=== PATIENT | female | born 1985 | race Caucasian/White ===

== ENCOUNTER 2018-05-07 12:22 | Inpatient (IN) ==
--- NOTE | 2018-05-07 12:38 | Emergency Department Note ---
Disposition Clinical Impression: Wound of right lower extremity Qualifiers: Encounter type: initial encounter Qualified Code(s): S81.801A - Unspecified open wound, right lower leg, initial encounter Disposition: Admitted As Inpatient Condition: Good Time of Disposition: 12:55 Wound/Laceration HPI - General Chief Complaint: ED Wound/Laceration Stated Complaint: "wound on R leg drainage,fever,swelling" Time Seen by Provider: 05/07/18 12:37 Source: patient Mode of arrival: ambulatory Limitations: no limitations Nursing Notes Reviewed: Yes Vital Signs Reviewed: Yes - History of Present Illness HPI Narrative: I have re-performed and reviewed the history documented by the medical student, and I confirm its accuracy except as noted below Patient has been on Bactrim and Keflex, completed a ten-day course but the wound is worsening . Otherwise, agree with student history of present illness. - Related Data Home Medications Medication Instructions Recorded Confirmed No Known Home Drugs 05/07/18 05/07/18 Allergies Allergy/AdvReac Type Severity Reaction Status Date / Time No Known Allergies Allergy Verified 05/07/18 14:29 All systems ED: reviewed and negative except as stated. Constitutional: Denies: fever Cardiovascular: Denies: chest pain Respiratory: Denies: cough, dyspnea Gastrointestinal: Denies: abdominal pain, nausea, vomiting, diarrhea, constipation Integumentary: Reports: other (LE wounds, venous stasis) Neurological: Denies: headache, weakness, numbness Past Medical History - Past Medical History Attestation: Yes The following information was validated with the patient. 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 - Social History Smoking Status: Current every day smoker Smokeless Tobacco Status: No Alcohol use: Reports: none Drug use: Reports: none, other (History of opioid dependence on Suboxone.) Physical Exam - General Limitations: no limitations General appearance: alert, in no apparent distress - Head Head exam: atraumatic, normocephalic, normal inspection - Eye Eye exam: Present: normal appearance, PERRL, EOMI - ENT ENT exam: normal exam, normal oropharynx, mucous membranes moist - Neck Neck exam: Present: normal inspection, full ROM, trachea midline - Chest Chest inspection: Present: normal inspection, symmetric chest wall rise - Respiratory Respiratory exam: Present: normal lung sounds bilaterally - Cardiovascular Cardiovascular exam: Present: normal rhythm, tachycardia, normal heart sounds - Abdominal Exam Abdominal exam: Present: soft, Non-Tender, other (obese). Absent: tenderness, distention, guarding, rebound, rigidity - Extremities Exam Extremities exam: Present: other (LE venous stasis dermatitis bilaterally up to mid calves, bullae on left lower extremity. RLE wound approx 15cm x 15cm, central white tissue with pus drainage from central aspect, foul odor; no fluctuance noted) - Neurological Exam Neurological exam: Present: alert, oriented X3 - Psychiatric Psychiatric exam: Present: normal affect, normal mood - Skin Skin exam: Present: warm, dry, intact, normal color Course Course Narrative: Physical exam shows: LE venous stasis dermatitis bilaterally up to mid calves, bullae on left lower extremity. RLE wound approx 15cm x 15cm, central white tissue with pus drainage from central aspect, foul odor; no fluctuance noted. Patient is tachycardic but otherwise the rest of the vitals within normal limits. Does not meet sepsis criteria at this time. However, did obtain lactic acid, blood cultures, basic blood work CBC and BMP, also obtained coags in case patient needs to go to the OR for debridement. Patient was started empirically on vancomycin and Zosyn. She is technically failed outpatient treatment with Bactrim and Keflex for right lower extremity wound. We will also obtain CT of the right lower extremity with contrast to assess for any abscess or gas. Patient was happy and agreeable with this plan. Did not give fluids at this time due to significant edema of bilateral extremities and fear of worsening wounds/bullae. BP stable at this time. 15:31 no major abnormalities in lab work. CT of the lower extremity showed subcutaneous edema and skin thickening consistent with cellulitis but no drainable abscess or evidence of subcutaneous gas. No evidence of any osteomyelitis. Cultures have been drawn. Patient was started on vancomycin and Zosyn. I talked with hospitalist. He had requested that we talk with surgery to consult them in case any debridement may be necessary of the right lower extremity wound. I talked with Dr. Cruz, she will act as consult. She did recommend that we put gentamicin topically on the wound, apply clean gauze and Kerlix. This order was placed. Patient has been admitted at this time by Dr. Martinez. Lower Extremity CT 05/07/18 13:04 IMPRESSION: 1. Subcutaneous edema and skin thickening. Correlate clinically for cellulitis. No organized drainable fluid collection identified. No evidence for subcutaneous gas. 2. No acute osseous abnormality and no CT evidence for osteomyelitis. D/ / Tanner Osman MD / Tanner Osman MD Interpreting Provider: Tanner Osman MD Vital Signs Temperature 97.7 F 05/07/18 12:29 Pulse Rate 101 05/07/18 12:29 Respiratory Rate 18 05/07/18 12:29 Blood Pressure 120/75 05/07/18 12:29 O2 Sat by Pulse Oximetry 97 05/07/18 12:29 Temperature 98.4 F 05/07/18 16:20 Pulse Rate 95 05/07/18 16:20 Respiratory Rate 14 05/07/18 16:20 Blood Pressure 128/83 05/07/18 16:20 O2 Sat by Pulse Oximetry 99 05/07/18 16:20 Oxygen Delivery Oxygen Delivery Room Air Wound/Laceration - [facility] Narrative Medical decision making narrative: Physical exam shows: LE venous stasis dermatitis bilaterally up to mid calves, bullae on left lower extremity. RLE wound approx 15cm x 15cm, central white tissue with pus drainage from central aspect, foul odor; no fluctuance noted. Patient is tachycardic but otherwise the rest of the vitals within normal limits. Does not meet sepsis criteria at this time. However, did obtain lactic acid, blood cultures, basic blood work CBC and BMP, also obtained coags in case patient needs to go to the OR for debridement. Patient was started empirically on vancomycin and Zosyn. She is technically failed outpatient treatment with Bactrim and Keflex for right lower extremity wound. We will also obtain CT of the right lower extremity with contrast to assess for any abscess or gas. Patient was happy and agreeable with this plan. Did not give fluids at this time due to significant edema of bilateral extremities and fear of worsening wounds/bullae. BP stable at this time. 15:31 no major abnormalities in lab work. CT of the lower extremity showed subcutaneous edema and skin thickening consistent with cellulitis but no drainable abscess or evidence of subcutaneous gas. No evidence of any osteomyelitis. Cultures have been drawn. Patient was started on vancomycin and Zosyn. I talked with hospitalist. He had requested that we talk with surgery to consult them in case any debridement may be necessary of the right lower extremity wound. I talked with Dr. Cruz, she will act as consult. She did recommend that we put gentamicin topically on the wound, apply clean gauze and Kerlix. This order was placed. Patient has been admitted at this time by Dr. Martinez. - Medical Records Medical records reviewed: Yes I reviewed the patient's medical records. - Lab Data Lab results reviewed: Yes I reviewed the patient's lab results. Result diagrams: 05/07/18 13:08 05/07/18 13:08 Lab Results 05/07/18 05/07/18 05/07/18 Range/Units 13:08 13:08 13:08 WBC 7.6 (4.3-11.1) K/mcL RBC 3.72 L (3.82-4.97) M/mcL Hgb 11.7 (11.5-15.4) g/dL Hct 35.7 (35.3-44.9) % MCV 96.0 (83.0-100.0) fL MCH 31.5 (28.0-33.3) pg MCHC 32.8 (31.6-35.5) g/dL RDW 14.3 (11.5-14.5) % Plt Count 199 (140-400) K/mcL MPV 10.4 (9.4-12.4) fL Immature Gran % 0.1 (0-4) % Seg Neutrophils % 58.6 % Lymphocytes % 29.4 % Monocytes % 7.4 % Eosinophils % 3.7 % Basophils % 0.8 % Neutrophils # 4.4 (1.6-8.9) K/mcL Lymphocytes # 2.2 (0.6-4.6) K/mcL Monocytes # 0.6 (0.0-1.3) K/mcL Eosinophils # 0.3 (0.0-0.6) K/mcL Basophils # 0.1 (0.0-0.2) K/mcL PT 12.5 H (9.4-12.1) Seconds INR 1.1 APTT 36.0 (26.0-36.0) Seconds Sodium 138 (136-145) mEq/L Potassium 3.5 (3.5-5.1) mEq/L Chloride 102 (98-107) mEq/L Carbon Dioxide 31 H (23-29) mEq/L BUN 8 (6-20) mg/dL Creatinine 0.67 (0.60-1.20) mg/dL Est GFR ( Amer) > 60 (> 60) Est GFR (Non-Af Amer) > 60 (> 60) BUN/Creatinine Ratio 12 (6-26) Glucose 108 H (70-105) mg/dL Calculated Osmolality 285 (280-300) Lactic Acid (0.5-2.2) mmol/L Calcium 9.3 (8.6-10.3) mg/dL 05/07/18 Range/Units 13:08 WBC (4.3-11.1) K/mcL RBC (3.82-4.97) M/mcL Hgb (11.5-15.4) g/dL Hct (35.3-44.9) % MCV (83.0-100.0) fL MCH (28.0-33.3) pg MCHC (31.6-35.5) g/dL RDW (11.5-14.5) % Plt Count (140-400) K/mcL MPV (9.4-12.4) fL Immature Gran % (0-4) % Seg Neutrophils % % Lymphocytes % % Monocytes % % Eosinophils % % Basophils % % Neutrophils # (1.6-8.9) K/mcL Lymphocytes # (0.6-4.6) K/mcL Monocytes # (0.0-1.3) K/mcL Eosinophils # (0.0-0.6) K/mcL Basophils # (0.0-0.2) K/mcL PT (9.4-12.1) Seconds INR APTT (26.0-36.0) Seconds Sodium (136-145) mEq/L Potassium (3.5-5.1) mEq/L Chloride (98-107) mEq/L Carbon Dioxide (23-29) mEq/L BUN (6-20) mg/dL Creatinine (0.60-1.20) mg/dL Est GFR ( Amer) (> 60) Est GFR (Non-Af Amer) (> 60) BUN/Creatinine Ratio (6-26) Glucose (70-105) mg/dL Calculated Osmolality (280-300) Lactic Acid 1.0 (0.5-2.2) mmol/L Calcium (8.6-10.3) mg/dL - Radiology Data Radiology results reviewed: Yes I reviewed the patient's radiology results. Lower Extremity CT 05/07/18 13:04 IMPRESSION: 1. Subcutaneous edema and skin thickening. Correlate clinically for cellulitis. No organized drainable fluid collection identified. No evidence for subcutaneous gas. 2. No acute osseous abnormality and no CT evidence for osteomyelitis. D/ / Tanner Osman MD / Tanner Osman MD Interpreting Provider: Tanner Osman MD S.B.A.R. - S.B.A.R. Situation: Demographics, MOA Background: Presenting Complaint, Relevant PMH, Meds, & Allergies Assessment: Vital Signs, Course and respsone to treatment, Exam Concerns, Patient/Family Expectation, Pertinant Lab Results Recommendation: Barrier(s) to disposition, Recommendation based on pending studies, treatments, or consults S.B.A.R. Report Given to: Dr. Martinez Attestation Statement - Attestation Attestation: I, Adan Anne, examined this patient and my medical decision-making was reviewed with the SURGICAL E[employer]IC KNITTER HAND [employer]AME/PA/Advanced Practice Nurse/Resident Physician. I agree with the documented findings, disposition and treatment plan as described except to the extent set forth below. 32-year-old female presents emergency Department with concerns of worsening lesion to the right lower show any. Patient states she was evaluated for similar lesion 1 month ago, was started on antibiotics which she finished. Incentive following up with the wound clinic she has since been using alcohol prep pad's and triple antibiotic ointment to return should wound which has been progressively worsening. Patient mildly tachycardic on initial evaluation. Patient had CT that did not show significant tracking or osteomyelitis associated with the lesion. Resident spoke with resolution specialist, Dr. Cruz, who agreed with the plan for admission to hospital for further care and evaluation.
[2018-05-07] MEDS ORDERED: Piperacillin/Tazobactam 3.375 GM in 0.9 % Sodium Chloride Mini Bag 100 ML IVPB ONE (12:51)
--- NOTE | 2018-05-07 13:03 | Emergency Department Note ---
Disposition Clinical Impression: Wound of right lower extremity Qualifiers: Encounter type: initial encounter Qualified Code(s): S81.801A - Unspecified open wound, right lower leg, initial encounter Disposition: Admitted As Inpatient Condition: Good General Adult HPI - General Chief complaint: ED Wound/Laceration Stated complaint: "wound on R leg drainage,fever,swelling" Time Seen by Provider: 05/07/18 12:37 Source: patient Mode of arrival: ambulatory Limitations: no limitations Nursing Notes Reviewed: Yes Vital Signs Reviewed: Yes - History of Present Illness HPI Narrative: The patient is a 32 year old female with history of MS who presented with right lower extremity wound. She stated she had a wound in the right lower extremity and was placed on antibiotics 2 weeks ago. She was told to follow up with wound care but never went. She has been taking care of the wound with alcohol, triple antibiotic ointment and keeping it wrapped up. She has not changed the bandage in a few days. Her last tetanus shot was 2 weeks ago. She states she has had extremely swollen lower extremities bilaterally due to her MS for "awhile" and has venous stasis bullae and wounds due to this. She denied fever, chills, abdominal pain, chest pain, shortness of breath, cough. Pain Scale: 0 - Related Data Home Medications Medication Instructions Recorded Confirmed No Known Home Drugs 05/07/18 05/07/18 Allergies Allergy/AdvReac Type Severity Reaction Status Date / Time No Known Allergies Allergy Verified 05/07/18 14:29 All systems ED: reviewed and negative except as stated. Review of Systems: As Per HPI Constitutional: Denies: fever, chills, weakness, weight change Cardiovascular: Reports: edema. Denies: chest pain, palpitations, dyspnea on exertion, syncope Respiratory: Denies: cough, dyspnea, wheezes, hemoptysis, stridor Gastrointestinal: Denies: abdominal pain, nausea, vomiting, diarrhea, constipation, hematemesis, melena, hematochezia Genitourinary: Denies: dysuria Integumentary: Reports: as per HPI, other (wound on right lower extremity ) Neurological: Reports: numbness (bilateral feet). Denies: headache, weakness Past Medical History - Past Medical History Source: patient Medical history: Reports: other (Possible multiple sclerosis) Psychiatric history: Reports: no psych history CLAIMS AGENT RIGHT OF WAY history: Reports: bilateral tubal ligation - Social History Smoking Status: Current every day smoker Smokeless Tobacco Status: No Alcohol use: Reports: none Drug use: Reports: none, other (History of opioid dependence on Suboxone.) Physical Exam - General Limitations: no limitations General appearance: alert, in no apparent distress, obese - Head Head exam: atraumatic, normocephalic - Neck Neck exam: Present: trachea midline - Respiratory Respiratory exam: Present: normal lung sounds bilaterally. Absent: respiratory distress, wheezes - Cardiovascular Cardiovascular exam: Present: normal rhythm, tachycardia - Abdominal Exam Abdominal exam: Present: soft, Non-Tender. Absent: tenderness, distention, guarding, rebound - Expanded Lower Extremity Exam Lower leg exam: Present: full ROM, tenderness, swelling, other (tense unruptured bullae on left lower leg. Right lower leg with 4x4cm wound that appears ulcerated with prurulent moist surface and is malodorous. Bilateral lower extremity swelling. ) Neurovascular/Tendon exam: Absent: pulse deficit, extremity cold to touch Course Vital Signs Temperature 97.7 F 05/07/18 12:29 Pulse Rate 101 05/07/18 12:29 Respiratory Rate 18 05/07/18 12:29 Blood Pressure 120/75 05/07/18 12:29 O2 Sat by Pulse Oximetry 97 05/07/18 12:29 Temperature 98.4 F 05/07/18 16:20 Pulse Rate 95 05/07/18 16:20 Respiratory Rate 14 05/07/18 16:20 Blood Pressure 128/83 05/07/18 16:20 O2 Sat by Pulse Oximetry 99 05/07/18 16:20 Oxygen Delivery Oxygen Delivery Room Air Medical Decision Making - Lab Data Result diagrams: 05/07/18 13:08 05/07/18 13:08 Lab Results 05/07/18 05/07/18 05/07/18 Range/Units 13:08 13:08 13:08 WBC 7.6 (4.3-11.1) K/mcL RBC 3.72 L (3.82-4.97) M/mcL Hgb 11.7 (11.5-15.4) g/dL Hct 35.7 (35.3-44.9) % MCV 96.0 (83.0-100.0) fL MCH 31.5 (28.0-33.3) pg MCHC 32.8 (31.6-35.5) g/dL RDW 14.3 (11.5-14.5) % Plt Count 199 (140-400) K/mcL MPV 10.4 (9.4-12.4) fL Immature Gran % 0.1 (0-4) % Seg Neutrophils % 58.6 % Lymphocytes % 29.4 % Monocytes % 7.4 % Eosinophils % 3.7 % Basophils % 0.8 % Neutrophils # 4.4 (1.6-8.9) K/mcL Lymphocytes # 2.2 (0.6-4.6) K/mcL Monocytes # 0.6 (0.0-1.3) K/mcL Eosinophils # 0.3 (0.0-0.6) K/mcL Basophils # 0.1 (0.0-0.2) K/mcL PT 12.5 H (9.4-12.1) Seconds INR 1.1 APTT 36.0 (26.0-36.0) Seconds Sodium 138 (136-145) mEq/L Potassium 3.5 (3.5-5.1) mEq/L Chloride 102 (98-107) mEq/L Carbon Dioxide 31 H (23-29) mEq/L BUN 8 (6-20) mg/dL Creatinine 0.67 (0.60-1.20) mg/dL Est GFR ( Amer) > 60 (> 60) Est GFR (Non-Af Amer) > 60 (> 60) BUN/Creatinine Ratio 12 (6-26) Glucose 108 H (70-105) mg/dL Calculated Osmolality 285 (280-300) Lactic Acid (0.5-2.2) mmol/L Calcium 9.3 (8.6-10.3) mg/dL 05/07/18 Range/Units 13:08 WBC (4.3-11.1) K/mcL RBC (3.82-4.97) M/mcL Hgb (11.5-15.4) g/dL Hct (35.3-44.9) % MCV (83.0-100.0) fL MCH (28.0-33.3) pg MCHC (31.6-35.5) g/dL RDW (11.5-14.5) % Plt Count (140-400) K/mcL MPV (9.4-12.4) fL Immature Gran % (0-4) % Seg Neutrophils % % Lymphocytes % % Monocytes % % Eosinophils % % Basophils % % Neutrophils # (1.6-8.9) K/mcL Lymphocytes # (0.6-4.6) K/mcL Monocytes # (0.0-1.3) K/mcL Eosinophils # (0.0-0.6) K/mcL Basophils # (0.0-0.2) K/mcL PT (9.4-12.1) Seconds INR APTT (26.0-36.0) Seconds Sodium (136-145) mEq/L Potassium (3.5-5.1) mEq/L Chloride (98-107) mEq/L Carbon Dioxide (23-29) mEq/L BUN (6-20) mg/dL Creatinine (0.60-1.20) mg/dL Est GFR ( Amer) (> 60) Est GFR (Non-Af Amer) (> 60) BUN/Creatinine Ratio (6-26) Glucose (70-105) mg/dL Calculated Osmolality (280-300) Lactic Acid 1.0 (0.5-2.2) mmol/L Calcium (8.6-10.3) mg/dL
[2018-05-07] MEDS ORDERED: Isovue-370 500 ML INFUS..BTL IV ONE (13:04)
[2018-05-07 13:23] LABS: Basophils # 0.1 K/mcL (0.0-0.2); Basophils % 0.8 %; Eosinophils # 0.3 K/mcL (0.0-0.6); Eosinophils % 3.7 %; Hematocrit 35.7 % (35.3-44.9); Hemoglobin 11.7 g/dL (11.5-15.4); Immature Granulocytes % 0.1 % (0-4); Lymphocytes # 2.2 K/mcL (0.6-4.6); Lymphocytes % 29.4 %; Mean Corpuscular HGB Conc 32.8 g/dL (31.6-35.5); Mean Corpuscular Hemoglobin 31.5 pg (28.0-33.3); Mean Platelet Volume 10.4 fL (9.4-12.4); Monocytes # 0.6 K/mcL (0.0-1.3); Monocytes % 7.4 %; Neutrophils # 4.4 K/mcL (1.6-8.9); Platelet Count 199 K/mcL (140-400); Red Blood Count 3.72 M/mcL (3.82-4.97); Red Cell Distribution Width 14.3 % (11.5-14.5); Segmented Neutrophils % 58.6 %
[2018-05-07 13:30] LABS: INR 1.1; Prothrombin Time 12.5 Seconds (9.4-12.1)
[2018-05-07 13:40] LABS: BUN/Creatinine Ratio 12 (6-26); Blood Urea Nitrogen 8 mg/dL (6-20); Calcium 9.3 mg/dL (8.6-10.3); Carbon Dioxide 31 mEq/L (23-29); Chloride 102 mEq/L (98-107); Glucose 108 mg/dL (70-105); Osmolality,Calculated 285 (280-300); Potassium 3.5 mEq/L (3.5-5.1); Sodium 138 mEq/L (136-145); eGFR For Non-African Americans > 60 (> 60)
[2018-05-07] MEDS ORDERED: Naloxone 0.4 MG/ML INJ IVP PRN (16:20)
[2018-05-07] MEDS ORDERED: 0.9 % Sodium Chloride 1,000 ML IVC SCH (17:15)
--- NOTE | 2018-05-07 17:19 | Internal Med Progress Note ---
Hospitalist Progress Note - Encounter Date of Encounter: 05/08/18 Time of Encounter: 11:00 - Subjective Interval History: Patient was seen and examined at bedside She denies any overnight events. Pain is controlled. Denies nausea, vomiting, diarrhea, fever, chills, chest pain, shortness of breath. Is tolerating by mouth diet - Exam Vitals: Temp Pulse Resp BP Pulse Ox 98.4 F 95 14 128/83 99 05/07/18 16:20 05/07/18 16:20 05/07/18 16:20 05/07/18 16:20 05/07/18 16:20 Exam: General: Patient is alert, oriented, no acute distress, quickly obese Head: atraumatic, normocephalic, Eye: normal appearance, no scleral icterus, no conjunctival injection ENT: mucous membranes moist, normal external ear exam Neck: normal inspection, trachea midline, full ROM, no carotid bruits Chest: normal inspection, symmetric chest rise Respiratory: Decreased breath sounds secondary to body habitus, Good respiratory effort. Bilateral breath sounds are clear without wheezing, crackles, or rhonchi. Cardiovascular: Increased heart sounds secondary to body habitus, Regular rate and rhythm. s1 and s2 No clicks, rubs, gallops, or murmors. Abdomen: Bowel sounds present normoactive x-4 quadrants. Abdomen is soft, nondistended. no Epigastric tenderness. No guarding or rebound. No organomegaly noted, obese musculoskeletal: Spontaneously moving all extremities. She has pitting 3+ edema of her bilateral lower extremities, erythema below the knee down to the ankle, there is warmth associated with the area, has a 4 x 4 centimeter ulcer above the right malleolus, no visible pus straining, is not foul-smelling, there is no signs of bleeding Skin: warm, dry, intact. Neuro: Alert and oriented x4. Sensation light touch intact. Cranial nerves 2- 12 is intact. Not aphasic, no focal deficit Psych: Patient's affect is normal - Assessment and Plan (1) Cellulitis of both lower extremities Current Visit: Yes Status: Acute Assessment and Plan: ESR 37 CRP 47 Blood cultures sent on 05/07 we will follow results Vancomycin and Zosyn IV started on 05/07 DVT study of the lower extremity performed on 05/08 will follow results A1c 5.1 CPK 31 MRSA screen- pending nursing staff aware Consult to wound care Surgery was consulted - recommendations appreciated Topical gentamicin lactic acid WNL ID consulted as she has failed multiple OP treatment for OP Abx recommendations in addition to duration CT with IV contrast of the lower extremity done on 05/07/18- 1. Subcutaneous edema and skin thickening. Correlate clinically for cellulitis. No organized drainable fluid collection identified. No evidence for subcutaneous gas. 2. No acute osseous abnormality and no CT evidence for osteomyelitis. (2) Ulcer of right lower extremity Current Visit: Yes Status: Acute Assessment and Plan: Surgery on board and recs appreciated Rest of the management as per above (3) Morbidly obese Current Visit: Yes Status: Acute Assessment and Plan: Counseled on nutrition Nutrition consult (4) Multiple sclerosis Current Visit: Yes Status: Acute Assessment and Plan: Reports diagnosis years ago. He is to be treated with injections but cannot recall medication. Has lost vision in eye years ago. Currently not an exacerbation. will consider consulting neurology if worsening symptoms (5) Current every day smoker Current Visit: Yes Status: Acute Assessment and Plan: was counseled on smoking cessation DVT Prophylaxis: Heparin subcutaneous - Time Spent with Patient Total time spent is greater than 50% in coordination of care (as documented) at patient's floor/unit and/or counseling patient: Internal Medicine: Result - Labs CBC & Chem 7: 05/08/18 04:03 05/08/18 04:03 - ABG Interpretation ABG results: PT/INR, D-dimer PT 12.5 Seconds (9.4-12.1) H 05/07/18 13:08 Consult Discharge Plan - Plan Referrals: NONE,PCP [Primary Care Provider] - (2) Ulcer of right lower extremity Qualifiers: Non-pressure ulcer stage: limited to breakdown of skin Qualified Code(s): L97.911 - Non-pressure chronic ulcer of unspecified part of right lower leg limited to breakdown of skin
--- NOTE | 2018-05-07 17:36 | Internal Med History&Physical ---
Date of Encounter: 05/07/18 Time of Encounter: 16:30 Internal Medicine - H&P: HPI Chief complaint: right leg ulcer Admitted From: Home Plans for Post Hospital Care: Home History of present illness: 32-year-old female with history of multiple episodes of lower extremity cellulitis, recently treated with antibiotics, morbid obesity, venous stasis and multiple sclerosis not on medication presented to the ED with complaint of right lower extremity swelling. As per patient her symptoms started about 2 months ago when she developed an ulcer above her ankle with pus coming from the ulcer. She was hospitalized and was treated with IV antibiotic with improvement of her symptoms and was discharged on oral antibiotics. Again above her right ankle she developed a blister full of pus and was treated with IV antibiotics and was discharged about 3 weeks ago on oral antibiotics which she finished about one week ago. She reports that the antibiotics that she was discharged on where Bactrim and keflex. She reports that her ulcer with antibiotics that were given only minimally improved. she cannot recall aggravating factors. This morning she decided to come to the emergency department because she woke up and the dressing around her ulcer was soaked with blood. Currently she denies any foul-smelling discharge from the ulcer and has been trying to keep it clean with triple antibiotic ointment and wrapping. She does admit that she has not change bandages in the past few days. She reports that her lower extremities have been swollen for a few years and they have progressively become more swollen especially in the past month. Bilateral leg swelling keeps her from ambulating as much as she used to. She denies any pain associated with the ulcer and the swelling, denies shortness of breath, recent trauma, chest pain, fever and chills. Her last tetanus shot was 2 weeks ago. she is a single mom of 4, current everyday smoker, reports compliance with ehr Abx regimen. last time hse had a DVT study was years ago. denies history of blood clots. 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 was started on "shots" years ago but has not been compliant with visits and has not taken any medications for years. currently she denies any loss of bowel and bladder function, her vision is at baseline, denies headache, spasms, loss of function. Past Med Surg Social Fam HX - Past Medical History Medical history: other Additional medical history: MS Psychiatric history: no psych history - Past Surgical History Additional surgical history: tubal ligation - Social History Smoking Status: Current every day smoker Packs per day: 1.5 packs Smokeless Tobacco Status: No Alcohol use: none Drug use: none Internal Medicine - H&P: Meds No Known Home Drugs 05/07/18 [History] 3 Allergy/AdvReac Type Severity Reaction Status Date / Time No Known Allergies Allergy Verified 05/07/18 14:29 All Systems PM: review of systems was performed and is negative for pertinent findings except as documented above in the HPI. - Constitutional Vitals: Temp Pulse Resp BP Pulse Ox 98.4 F 95 14 128/83 99 05/07/18 16:20 05/07/18 16:20 05/07/18 16:20 05/07/18 16:20 05/07/18 16:20 Exam: General: Patient is alert, oriented, no acute distress, quickly obese Head: atraumatic, normocephalic, Eye: normal appearance, no scleral icterus, no conjunctival injection ENT: mucous membranes moist, normal external ear exam Neck: normal inspection, trachea midline, full ROM, no carotid bruits Chest: normal inspection, symmetric chest rise Respiratory: Decreased breath sounds secondary to body habitus, Good respiratory effort. Bilateral breath sounds are clear without wheezing, crackles, or rhonchi. Cardiovascular: Increased heart sounds secondary to body habitus, Regular rate and rhythm. s1 and s2 No clicks, rubs, gallops, or murmors. Abdomen: Bowel sounds present normoactive x-4 quadrants. Abdomen is soft, nondistended. no Epigastric tenderness. No guarding or rebound. No organomegaly noted, obese musculoskeletal: Spontaneously moving all extremities. She has pitting 3+ edema of her bilateral lower extremities, erythema below the knee down to the ankle, there is warmth associated with the area, has a 4 x 4 centimeter ulcer above the right malleolus, no visible pus straining, is not foul-smelling, there is no signs of bleeding Skin: warm, dry, intact. Neuro: Alert and oriented x4. Sensation light touch intact. Cranial nerves 2- 12 is intact. Not aphasic, no focal deficit Psych: Patient's affect is normal Internal Med - H&P Results - Labs CBC & Chem 7: 05/07/18 13:08 05/07/18 13:08 - Assessment and plan (1) Cellulitis of both lower extremities Current Visit: Yes Status: Acute Assessment and plan: We will start her on gentle hydration with Anis at 60 mL per hour ESR CRP Blood cultures sent on 05/07 we will follow results Vancomycin and Zosyn IV started on 05/07 DVT study of the lower extremity A1c CPK MRSA screen Consult to wound care Surgery was consulted by the ED physician ( Dr. palafox) will follow recommendations Topical gentamicin lactic acid WNL CT with IV contrast of the lower extremity done on 05/07/18- 1. Subcutaneous edema and skin thickening. Correlate clinically for cellulitis. No organized drainable fluid collection identified. No evidence for subcutaneous gas. 2. No acute osseous abnormality and no CT evidence for osteomyelitis. (2) Ulcer of right lower extremity Current Visit: Yes Status: Acute Assessment and plan: Surgery was consulted to follow recommendations Rest of the management as per above Qualifiers: Non-pressure ulcer stage: limited to breakdown of skin Qualified Code(s): L97.911 - Non-pressure chronic ulcer of unspecified part of right lower leg limited to breakdown of skin (3) Morbidly obese Current Visit: Yes Status: Acute Assessment and plan: Counseled on nutrition Nutrition consult (4) Multiple sclerosis Current Visit: Yes Status: Acute Assessment and plan: Reports diagnosis years ago. He is to be treated with injections but cannot recall medication. Has lost vision in eye years ago. Currently not an exacerbation. will consider consulting neurology if worsening symptoms (5) Current every day smoker Current Visit: Yes Status: Acute Assessment and plan: was counseled on smoking cessation - Time Spent With Patient Total time spent is greater than 50% in coordination of care (as documented) at patient's floor/unit and/or counseling patient:
[2018-05-07] MEDS: *HR* Heparin 5,000 UNIT/ML VIAL SQ SCH ×2 (18:28→22:37)
[2018-05-07] MEDS: Gentamicin Oint 15 GM TUBE TP SCH (18:35)
[2018-05-08] MEDS: Piperacillin/Tazobactam 3.375 GM in 0.9 % Sodium Chloride Mini Bag 100 ML IVPB SCH ×3 (00:32→16:13)
[2018-05-08 04:21] LABS: Hematocrit 30.4 % (35.3-44.9); Mean Corpuscular HGB Conc 31.9 g/dL (31.6-35.5); Mean Corpuscular Hemoglobin 30.7 pg (28.0-33.3); Mean Corpuscular Volume 96.2 fL (83.0-100.0); Mean Platelet Volume 10.4 fL (9.4-12.4); Platelet Count 193 K/mcL (140-400); Red Blood Count 3.16 M/mcL (3.82-4.97); Red Cell Distribution Width 14.5 % (11.5-14.5)
[2018-05-08 04:28] LABS: Hemoglobin 9.7 g/dL (11.5-15.4)
[2018-05-08 04:41] LABS: BUN/Creatinine Ratio 10 (6-26); Blood Urea Nitrogen 7 mg/dL (6-20); C-Reactive Protein 47 mg/L (Less than 10); Calcium 8.5 mg/dL (8.6-10.3); Carbon Dioxide 28 mEq/L (23-29); Chloride 107 mEq/L (98-107); Glucose 107 mg/dL (70-105); Osmolality,Calculated 290 (280-300); Potassium 3.8 mEq/L (3.5-5.1); Sodium 141 mEq/L (136-145); eGFR For Non-African Americans > 60 (> 60)
[2018-05-08] MEDS: *HR* Heparin 5,000 UNIT/ML VIAL SQ SCH ×3 (05:40→22:40)
[2018-05-08] MEDS: Gentamicin Oint 15 GM TUBE TP SCH ×2 (09:02→22:41)
--- NOTE | 2018-05-08 09:22 | General Surgery Consult Note ---
<Nayan Iglesias R - Last Filed: 05/08/18 10:41> Date of Encounter: 05/08/18 Time of Encounter: 07:45 Assessment and Plan (1) Wound of right lower extremity Current Visit: Yes Status: Acute Patient does have healing wound of right medial ankle. Central portion is open and draining. Surrounding cellulitis that will need to be treated prior to aggressive wound care management. Plan: Continue antibiotics and topical gentamicin Wound care with daily dressing changes Comfort care and pain management Elevated legs when in bed Venous stasis wounds are slow to heal, will require follow up with wound care as outpatient with compression dressings. Qualifiers: Encounter type: initial encounter Qualified Code(s): S81.801A - Unspecified open wound, right lower leg, initial encounter History of Present Illness Consult date: 05/08/18 (Dr. Cruz) Requesting physician: Lashanda Vaughn (Hospitalist) History of present illness: 32-year-old female with a history of multiple sclerosis, morbid obesity, chronic venous stasis. She presented to the ED yesterday for chief complaint of right lower extremity cellulitis and wound. She states that she develops sores on her lower extremities easily. Approximately 2 months ago a wound on her medial right ankle developed with purulent drainage, she was hospitalized and treated with IV antibiotics and discharged with oral antibiotics after improvement, with instructions for follow-up wound care. Patient did not comply with follow-up wound care as advised. She reports that the area did not completely heal. One month ago she was again treated for purulent drainage from this wound, per patient chart she was treated with clindamycin and Bactrim. She was advised to follow-up with wound care, however she did not comply. And she reports that the infection and purulent drainage did not completely resolve with treatment of oral antibiotics. She reports trying to keep the area clean and apply triple antibiotic ointment with wrapping. Wound is only mildly painful, patient is able to ambulate with limp. She denies nausea, vomiting, diarrhea, fever. She endorses erythema surrounding the wound , and admits to multiple smaller non-draining wounds of the bilateral extremities and she covers with Band-Aids. CT scan was obtained in the ED with findings of subcutaneous edema and skin thickening without osseous abnormality or osteomyelitis. Patient was started on IV vancomycin and Zosyn. Past Med Surg Social Fam HX - Past Medical History Medical history: other (Possible multiple sclerosis) Additional medical history: MS Psychiatric history: no psych history - Past Surgical History Additional surgical history: tubal ligation - Social History Smoking Status: Current every day smoker Packs per day: 1.5 packs Smokeless Tobacco Status: No Alcohol use: none Drug use: none, other (History of opioid dependence on Suboxone.) Medications and Allergies No Known Home Drugs 05/07/18 [History] 3 Allergy/AdvReac Type Severity Reaction Status Date / Time No Known Allergies Allergy Verified 05/07/18 14:29 Review of Systems All systems PM: The remainder of the systems were reviewed and are negative - Constitutional no chills, no fever(s) - Musculoskeletal abnormal gait, other (Bilateral lower extremity swelling) - Integumentary skin ulcer, wounds General Surgery Exam Initial Vital Signs Temp Pulse Resp BP Pulse Ox 97.7 F 101 18 120/75 97 05/07/18 12:29 05/07/18 12:05/07/18 12:05/07/18 12:29 05/07/18 12:29 - General physical appearance well nourished, no distress, no pain, obese - Eyes PERRL, normal ocular movement - ENT normal mucosa, atraumatic, normocephalic - Neck trachea midline - Respiratory normal expansion, normal respiratory effort, clear to auscultation - Cardiovascular Cardiovascular exam: Present: RRR - Abdomen Abdomen general surgery: Present: bowel sounds present, soft, non tender - Integumentary Integumentary general surgery: Present: warm and dry, other (Bilateral chronic venous statis. Circular healing wound of medial right ankle with central purulent drainage and surrounding cellulitis. Smaller non purulent sores of the left lower extremity) - Neurologic Present: CN 2-12 grossly intact - Psychiatric Psychiatric general surgery: Present: A&Ox3, speech is normal Exam Initial Vital Signs Temp Pulse Resp BP Pulse Ox 97.7 F 101 18 120/75 97 05/07/18 12:29 05/07/18 12:29 05/07/18 12:29 05/07/18 12:29 05/07/18 12:29 Results - Labs 05/08/18 04:03 05/08/18 04:03 Abnormal lab results RBC 3.16 M/mcL (3.82-4.97) L 05/08/18 04:03 Hgb 9.7 g/dL (11.5-15.4) L D 05/08/18 04:03 Hct 30.4 % (35.3-44.9) L 05/08/18 04:03 ESR 37 mm/hr (0-15) H 05/08/18 04:03 PT 12.5 Seconds (9.4-12.1) H 05/07/18 13:08 Glucose 107 mg/dL (70-105) H 05/08/18 04:03 Calcium 8.5 mg/dL (8.6-10.3) L 05/08/18 04:03 C-Reactive Protein 47 mg/L (Less than 10) H 05/08/18 04:03 Diabetes panel 05/08/18 Range/Units 04:03 Sodium 141 (136-145) mEq/L Potassium 3.8 (3.5-5.1) mEq/L Chloride 107 (98-107) mEq/L Carbon Dioxide 28 (23-29) mEq/L BUN 7 (6-20) mg/dL Creatinine 0.71 (0.60-1.20) mg/dL Glucose 107 H (70-105) mg/dL Calcium 8.5 L (8.6-10.3) mg/dL Calcium panel 05/08/18 Range/Units 04:03 Calcium 8.5 L (8.6-10.3) mg/dL Pituitary panel 05/08/18 Range/Units 04:03 Sodium 141 (136-145) mEq/L Potassium 3.8 (3.5-5.1) mEq/L Chloride 107 (98-107) mEq/L Carbon Dioxide 28 (23-29) mEq/L BUN 7 (6-20) mg/dL Creatinine 0.71 (0.60-1.20) mg/dL Glucose 107 H (70-105) mg/dL Calcium 8.5 L (8.6-10.3) mg/dL Adrenal panel 05/08/18 Range/Units 04:03 Sodium 141 (136-145) mEq/L Potassium 3.8 (3.5-5.1) mEq/L Chloride 107 (98-107) mEq/L Carbon Dioxide 28 (23-29) mEq/L BUN 7 (6-20) mg/dL Creatinine 0.71 (0.60-1.20) mg/dL Glucose 107 H (70-105) mg/dL Calcium 8.5 L (8.6-10.3) mg/dL All other labs normal. Consult Discharge Plan - Plan Referrals: NONE,PCP [Primary Care Provider] - <Wendie Cruz - Last Filed: 05/08/18 11:13> Date of Encounter: 05/08/18 Assessment and Plan (1) Venous ulcer of right leg Current Visit: Yes Status: Acute wash leg with soap and water daily, apply gentimicin ointment to open area, cover with guaze, wrap with kerlix and secure with tape, change daily once cellulitis is treated she can do the above dressing changes daily and also wrap with kerlix. patient can followup as outpatient in wound care and will be happy to see her for this and manage. (2) Cellulitis of both lower extremities Current Visit: Yes Status: Acute continue antibiotics Review of Systems All systems PM: The remainder of the systems were reviewed and are negative General Surgery Exam Initial Vital Signs Temp Pulse Resp BP Pulse Ox 97.7 F 101 18 120/75 97 05/07/18 12:29 05/07/18 12:29 05/07/18 12:29 05/07/18 12:29 05/07/18 12:29 Exam Initial Vital Signs Temp Pulse Resp BP Pulse Ox 97.7 F 101 18 120/75 97 05/07/18 12:29 05/07/18 12:29 05/07/18 12:29 05/07/18 12:29 05/07/18 12:29 Results - Labs 05/08/18 04:03 05/08/18 04:03 Abnormal lab results RBC 3.16 M/mcL (3.82-4.97) L 05/08/18 04:03 Hgb 9.7 g/dL (11.5-15.4) L D 05/08/18 04:03 Hct 30.4 % (35.3-44.9) L 05/08/18 04:03 ESR 37 mm/hr (0-15) H 05/08/18 04:03 PT 12.5 Seconds (9.4-12.1) H 05/07/18 13:08 Glucose 107 mg/dL (70-105) H 05/08/18 04:03 Calcium 8.5 mg/dL (8.6-10.3) L 05/08/18 04:03 C-Reactive Protein 47 mg/L (Less than 10) H 05/08/18 04:03 Diabetes panel 05/08/18 05/08/18 Range/Units 04:03 04:03 Sodium 141 (136-145) mEq/L Potassium 3.8 (3.5-5.1) mEq/L Chloride 107 (98-107) mEq/L Carbon Dioxide 28 (23-29) mEq/L BUN 7 (6-20) mg/dL Creatinine 0.71 (0.60-1.20) mg/dL Glucose 107 H (70-105) mg/dL Hemoglobin A1c 5.1 ( - 5.6) % Calcium 8.5 L (8.6-10.3) mg/dL Calcium panel 05/08/18 Range/Units 04:03 Calcium 8.5 L (8.6-10.3) mg/dL Pituitary panel 05/08/18 Range/Units 04:03 Sodium 141 (136-145) mEq/L Potassium 3.8 (3.5-5.1) mEq/L Chloride 107 (98-107) mEq/L Carbon Dioxide 28 (23-29) mEq/L BUN 7 (6-20) mg/dL Creatinine 0.71 (0.60-1.20) mg/dL Glucose 107 H (70-105) mg/dL Calcium 8.5 L (8.6-10.3) mg/dL Adrenal panel 05/08/18 Range/Units 04:03 Sodium 141 (136-145) mEq/L Potassium 3.8 (3.5-5.1) mEq/L Chloride 107 (98-107) mEq/L Carbon Dioxide 28 (23-29) mEq/L BUN 7 (6-20) mg/dL Creatinine 0.71 (0.60-1.20) mg/dL Glucose 107 H (70-105) mg/dL Calcium 8.5 L (8.6-10.3) mg/dL All other labs normal. - Attending Attestation I examined this patient and my medical decision-making was reviewed with the Resident Physician. I agree with the documented findings, disposition and treatment plan as described except to the extent set forth below.
[2018-05-08 09:47] LABS: Estimated Average Glucose 100 mg/dl; Hemoglobin A1C 5.1 %
[2018-05-08] MEDS ORDERED: Acetaminophen 325 MG TABLET PO PRN (20:11)
[2018-05-08] MEDS ORDERED: traMADol 50 MG TABLET PO PRN (20:11)
[2018-05-09] MEDS: Piperacillin/Tazobactam 3.375 GM in 0.9 % Sodium Chloride Mini Bag 100 ML IVPB SCH ×3 (00:21→15:36)
[2018-05-09 02:41] LABS: Hematocrit 31.1 % (35.3-44.9); Hemoglobin 10.1 g/dL (11.5-15.4); Mean Corpuscular HGB Conc 32.5 g/dL (31.6-35.5); Mean Corpuscular Hemoglobin 31.5 pg (28.0-33.3); Mean Corpuscular Volume 96.9 fL (83.0-100.0); Mean Platelet Volume 10.5 fL (9.4-12.4); Platelet Count 200 K/mcL (140-400); Red Blood Count 3.21 M/mcL (3.82-4.97); Red Cell Distribution Width 14.2 % (11.5-14.5)
[2018-05-09 02:58] LABS: BUN/Creatinine Ratio 10 (6-26); Blood Urea Nitrogen 5 mg/dL (6-20); Calcium 8.7 mg/dL (8.6-10.3); Carbon Dioxide 24 mEq/L (23-29); Chloride 108 mEq/L (98-107); Glucose 115 mg/dL (70-105); Osmolality,Calculated 288 (280-300); Potassium 3.8 mEq/L (3.5-5.1); Sodium 140 mEq/L (136-145); eGFR For Non-African Americans > 60 (> 60)
[2018-05-09] MEDS: *HR* Heparin 5,000 UNIT/ML VIAL SQ SCH ×2 (07:05→14:07)
[2018-05-09] MEDS: Gentamicin Oint 15 GM TUBE TP SCH (10:22)
--- NOTE | 2018-05-09 10:32 | Internal Med Progress Note ---
Hospitalist Progress Note - Encounter Date of Encounter: 05/09/18 Time of Encounter: 10:30 - Subjective Interval History: Patient was seen and examined at bedside She denies any overnight events. Pain is controlled. Denies nausea, vomiting, diarrhea, fever, chills, chest pain, shortness of breath. Is tolerating by mouth diet - Exam Vitals: Temp Pulse Resp BP Pulse Ox 98.1 F 83 14 135/74 94 05/09/18 05:18 05/09/18 05:18 05/09/18 05:18 05/09/18 05:18 05/09/18 05:18 Exam: General: Patient is alert, oriented, no acute distress, morbidly obese Head: atraumatic, normocephalic, Eye: normal appearance, no scleral icterus, no conjunctival injection ENT: mucous membranes moist, normal external ear exam Neck: normal inspection, trachea midline, full ROM, no carotid bruits Chest: normal inspection, symmetric chest rise Respiratory: Decreased breath sounds secondary to body habitus, Good respiratory effort. Bilateral breath sounds are clear without wheezing, crackles, or rhonchi. Cardiovascular: Increased heart sounds secondary to body habitus, Regular rate and rhythm. s1 and s2 No clicks, rubs, gallops, or murmors. Abdomen: Bowel sounds present normoactive x-4 quadrants. Abdomen is soft, nondistended. no Epigastric tenderness. No guarding or rebound. No organomegaly noted, obese musculoskeletal: Spontaneously moving all extremities. She has pitting 3+ edema of her bilateral lower extremities, erythema below the knee down to the ankle, now is wrapped with kerlex, clean no discharge. Skin: warm, dry, intact. Neuro: Alert and oriented x4. Sensation light touch intact. Cranial nerves 2- 12 is intact. Not aphasic, no focal deficit Psych: Patient's affect is normal - Assessment and Plan (1) Cellulitis of both lower extremities Current Visit: Yes Status: Acute Assessment and Plan: ESR 37 CRP 47 Blood cultures sent on 05/07 prelim negative Vancomycin and Zosyn IV started on 05/07 DVT study of the lower extremity performed on 05/08 - negative for DVT A1c 5.1 CPK 31 MRSA screen- pending nursing staff aware Consult to wound care Surgery was consulted - recommendations appreciated Topical gentamicin lactic acid WNL ID consulted as she has failed multiple OP treatment for OP Abx recommendations in addition to duration CT with IV contrast of the lower extremity done on 05/07/18- 1. Subcutaneous edema and skin thickening. Correlate clinically for cellulitis. No organized drainable fluid collection identified. No evidence for subcutaneous gas. 2. No acute osseous abnormality and no CT evidence for osteomyelitis. (2) Ulcer of right lower extremity Current Visit: Yes Status: Acute Assessment and Plan: Surgery on board and recs appreciated Rest of the management as per above (3) Morbidly obese Current Visit: Yes Status: Acute Assessment and Plan: Counseled on nutrition Nutrition consult (4) Multiple sclerosis Current Visit: Yes Status: Acute Assessment and Plan: Reports diagnosis years ago. He is to be treated with injections but cannot recall medication. Has lost vision in eye years ago. Currently not an exacerbation. will consider consulting neurology if worsening symptoms (5) Current every day smoker Current Visit: Yes Status: Acute Assessment and Plan: was counseled on smoking cessation DVT Prophylaxis: Heparin subcutaneous - Time Spent with Patient Total time spent is greater than 50% in coordination of care (as documented) at patient's floor/unit and/or counseling patient: Internal Medicine: Result - Labs CBC & Chem 7: 05/09/18 02:06 05/09/18 02:06 Labs: Short CBC 05/09/18 Range/Units 02:06 WBC 9.1 (4.3-11.1) K/mcL Hgb 10.1 L (11.5-15.4) g/dL Hct 31.1 L (35.3-44.9) % Plt Count 200 (140-400) K/mcL BMP 05/09/18 02:06 Sodium 140 Potassium 3.8 Chloride 108 H Carbon Dioxide 24 BUN 5 L Creatinine 0.52 L Glucose 115 H Calcium 8.7 - ABG Interpretation ABG results: PT/INR, D-dimer PT 12.5 Seconds (9.4-12.1) H 05/07/18 13:08 Consult Discharge Plan - Plan Referrals: NONE,PCP [Primary Care Provider] - (2) Ulcer of right lower extremity Qualifiers: Non-pressure ulcer stage: limited to breakdown of skin Qualified Code(s): L97.911 - Non-pressure chronic ulcer of unspecified part of right lower leg limited to breakdown of skin
--- NOTE | 2018-05-09 14:56 | Infectious Disease Consult ---
Date of Encounter: 05/09/18 Time of Encounter: 14:52 Assessment and Plan (1) Cellulitis Status: Acute Assessment and plan: Location: RLE. Causative organism: Unclear. Likely secondary to chronic ulcer. Patient denies known trauma. CT of the LE showed findings consistent with cellulitis without abscess or OM. ESR 37, CRP 47. At this point, the wound does not look infected. Continue Vancomycin IV. Pharmacy to dose. Goal trough ~15. (day 3) Continue Zosyn 3.375 grams IV Q8H. (day 3) Duration of treatment depends on the clinical picture, but likely a total of 14 days. Can likely transition to PO Bactrim DS 1 tab PO BID and Augmentin 875mg PO BID when ready for discharge. Treat through 05/20/18. Monitor renal function and for drug toxicity and dose-adjust antibiotics. Qualifiers: Site of cellulitis: extremity Site of cellulitis of extremity: lower extremity Laterality: right Qualified Code(s): L03.115 - Cellulitis of right lower limb (2) Ulcer of right lower extremity Status: Acute Assessment and plan: Etiology unclear, but likely venous stasis ulcer. Patient denies known trauma. CT negative for abscess or soft tissue gas. Clinically, it does not look infected at this point. General surgery consulted to assist with wound care. Antibiotics as above. Check HIV and Hepatitis profile. Qualifiers: Non-pressure ulcer stage: limited to breakdown of skin Qualified Code(s): L97.911 - Non-pressure chronic ulcer of unspecified part of right lower leg limited to breakdown of skin (3) Multiple sclerosis Status: Chronic Infectious Disease HPI - Data of Consult Patient: new to practice Consult date: 05/09/18 Requesting Physician: Lashanda Vaughn MD Primary Care Provider: PCP NONE - Consult Narrative Reason for consult: RLE wound History of present illness: Ms. Zhu is a 32 year old female not currently being treated. The patient was admitted to the hospital May 07 for right lower extremity wound and cellulitis. We are consulted May 09 for antibiotic recommendations for right lower extremity cellulitis. Briefly, the patient's 22-year-old female with a past medical history as stated above. The patient presented to the emergency department with complaints of a right lower extremity wound infection. Upon arrival to the ER, the patient was afebrile, but she was tachycardic. She had a normal white blood cell count, serum creatinine, and lactic acid. She does CT of the lower extremity that showed findings consistent with cellulitis. Blood cultures were obtained 2 sets. She was started on vancomycin and Zosyn and admitted to the hospital for further evaluation. Since admission, the patient has remained afebrile hemodynamically stable and her tach has resolved. ESR was mildly elevated at 37 with a CRP of 47. She had bilateral lower extremity venous Doppler studies that were negative for DVT. General surgery was consulted to assist with wound care management and have recommended outpatient follow-up. Currently, the patient is on IV Vanco and Zosyn. We have been asked to evaluate further recommendations. During my exam today, the patient endorses a history as stated above. She states that the wound has been ongoing now. She was seen in the ER at the beginning of April and was placed on a course of oral clindamycin and Bactrim. She states the wound improved and scabbed over, but she woke up a couple of weeks ago and had a large amount of bloody drainage from the wound. She was seen by her PCP and placed on a 10 day course of Bactrim and Keflex, which she states that she completed. She states her present symptoms persisted he presented to the emergency department for evaluation. She denies any fevers or chills or rigors. She denies any headache or neck pain. She denies any weakness or dizziness. She denies any chest pain, shortness of breath, or cough. She denies any nausea, vomiting, diarrhea, or constipation. She denies abdominal pain, urinary complaints, or appetite changes. She denies any oral thrush or new skin lesions. She reports purulent and bloody drainage from the site of the ulcer. She states she is not sure what caused the ulceration. She reports that the skin around the ulcer was red and warm to touch and tender. The patient lives at home with her [id number]. She does not work outside the home. She smokes about a pack of cigarettes per day. She denies any alcohol or illicit drug use. She denies any chronic infectious diseases. She denies any recent travel outside the [facility]. She does report having dogs and cats at home, but denies any bites or scratches. CC: Lashanda Vaughn MD Past Med Surg Social Fam HX - Past Medical History Attestation: Yes The following information was validated with the patient. Source: patient, old records reviewed, nursing notes reviewed Medical history: other (Possible multiple sclerosis) Additional medical history: MS Psychiatric history: no psych history - Past Surgical History Additional surgical history: tubal ligation - Social History Smoking Status: Current every day smoker Packs per day: 1.5 packs Smokeless Tobacco Status: No Alcohol use: none Drug use: none, other (History of opioid dependence on Suboxone.) Occupational status: unemployed Current living situation: Home, With Family Activity Level: Independent ambulation Recent Out of Country Travel Within the Last 8 Weeks: No Infectious Disease-CN:Meds Suboxone 8 mg-2 mg Sl Film 4 mg PO QID 05/09/18 [History] 3 Allergy/AdvReac Type Severity Reaction Status Date / Time No Known Allergies Allergy Verified 05/07/18 14:29 All systems: reviewed and no additional remarkable complaints except as stated Exam - Constitutional Vitals: Temp Pulse Resp BP Pulse Ox 98.2 F 81 16 137/88 98 05/09/18 10:33 05/09/18 10:33 05/09/18 10:33 05/09/18 10:33 05/09/18 10:33 General appearance: cooperative, no acute distress, obese - Head Head exam: Present: atraumatic, normal inspection, normocephalic - Eye Eye exam: Present: EOMI, normal appearance, PERRL Pupils: Present: normal accommodation - ENT ENT exam: Present: mucous membranes moist - Neck Neck exam: Present: normal inspection - Respiratory Respiratory exam: Present: CTAB. Absent: rales, respiratory distress, rhonchi, wheezes - Cardiovascular Cardiovascular exam: Present: RRR, +S1, +S2 - GI/Abdominal GI/Abdominal exam: Present: distended (obese), normal bowel sounds, soft. Absent: tenderness - Extremities Exam Extremities exam: Present: pedal edema (Trace BLE). Absent: joint swelling, normal inspection (Venous stasis dermatitis noted to the BLE), tenderness Additional comments: Ulceration noted to the medial aspect of the RLE. Small stage II wound noted with wound bed 75% slough and 25% scabbing. No drainage, redness, warmth, or fluctuance noted. - Neurological Exam Neurological exam: Present: alert, oriented X3, no focal deficits - Psychiatric Psychiatric exam: Present: normal affect, normal mood - Skin Skin exam: Present: dry, intact, normal color, warm Infectious Disease CN: Results - Labs CBC & Chem 7: 05/09/18 02:06 05/09/18 02:06 Consult Discharge Plan - Plan Referrals: NONE,PCP [Primary Care Provider] - - Attending Attestation I examined this patient and my medical decision-making was reviewed with the Resident Physician. I agree with the documented findings, disposition and treatment plan as described except to the extent set forth below. This is an addendum to original report dictated by Rosalie Jain CNP. Please refer to Rosalie's note for full details. Patient is a 2-year-old woman who has multiple social issues including history of IV drug use stated that she has not used drugs for almost a year also has multiple sclerosis diagnosed 5 years ago presented with cellulitis and open wound to right lower extremity. He should not is morbidly obese with a BMI of 45 and has some venous stasis-like pictures. Patient denies any trauma denies any insect bite or animal bite. Patient was started on broad-spectrum antibiotics and is clinically doing better. Were asked to see the patient and make antibiotic recommendations. While I was evaluating the patient she appeared very jittery and anxious. I am concerned that she is going through withdrawal. Apparently she is on Suboxone and she has been on for 3-4 days. Her pupils were even a little bit dilated. I notify nursing who came into the room and they will call the hospitalist and see what they can do. Patient tells me she cannot go to the Suboxone doctor because it costs $270 a month and she can afford it. As for the cellulitis combination of Bactrim and Augmentin or Cipro on Augmentin should cover his cellulitis. Monitor labs and for drug toxicity
[2018-05-09 19:17] VITALS: BP 126/79
[2018-05-09] MEDS ORDERED: *HR* Buprenorphine HCl 2 MG SUBLINGUAL TABLET SL ONE ×2 (20:15→20:30)
[2018-05-09 20:27] LABS: HIV-1&2 Antibody & p24 Ag Nonreactive (Nonreactive); Hepatitis B Surface Antigen Nonreactive (Nonreactive)
--- NOTE | 2018-05-09 20:49 | Event Note ---
Date of Encounter: 05/09/18 Time of Encounter: 20:30 Called by nurse due to patient wanting to leave AMA. Patient states she was told earlier today she could be discharged. Informed her that hospitalist group is in charge of her care and she is not yet medically cleared for discharge. Informed patient that leaving AMA could result in worsening of symptoms including . Patient verbalized understanding and still requests to leave AMA. AMA form signed by patient and on chart. Augmentin and Bactrim prescriptions given to patient per ID consult recommendations.
[2018-05-09] MEDS ORDERED: Aminoglycoside Consult 1 EACH MC ONE (20:54)
[2018-05-10 03:25] LABS: Hepatitis A Antibody IgM Nonreactive (Nonreactive); Hepatitis B Core IgM Nonreactive (Nonreactive); Hepatitis C Virus Antibody Nonreactive (Nonreactive)
--- NOTE | 2018-05-11 18:36 | Discharge Summary ---
Date of Encounter: 05/11/18 Time of Encounter: 20:30 - Discharge Diagnosis (1) Cellulitis of both lower extremities Priority: Primary Status: Acute (2) Morbidly obese Priority: Secondary Status: Acute (3) Multiple sclerosis Priority: Secondary Status: Chronic (4) Ulcer of right lower extremity Priority: Secondary Status: Acute Qualifiers: Non-pressure ulcer stage: limited to breakdown of skin Qualified Code(s): L97.911 - Non-pressure chronic ulcer of unspecified part of right lower leg limited to breakdown of skin (5) Current every day smoker Priority: Secondary Status: Acute Hospital course: Ms. Zhu left AMA per her request. Patient states she was told earlier today she could be discharged. Informed her that hospitalist group is in charge of her care and she is not yet medically cleared for discharge. Informed patient that leaving AMA could result in worsening of symptoms including . Patient verbalized understanding and still requests to leave AMA. AMA form signed by patient and on chart. Written Augmentin and Bactrim prescriptions given to patient per ID consult. - Time Spent with Patient Total time spent providing and/or coordinating discharge services: - Discharge Medications Home Medications: Suboxone 8 mg-2 mg Sl Film 4 mg PO QID 05/09/18 [History] Allergies/Adverse Reactions: 3 Allergy/AdvReac Type Severity Reaction Status Date / Time No Known Allergies Allergy Verified 05/07/18 14:29 Date of admission: 05/07/18 16:57 Primary care physician: PCP NONE Consults: 05/07/18 17:08 Consult to Wound Care [CONS] Routine Reason for Consult: right leg ulcer Call Completed: No 05/07/18 17:32 Consult to Nutrition [CONS] Routine Comment: Consulting Provider: NUTRITION Reason for Dietary Consult: PO Supplementation 05/08/18 12:21 Consult to Infectious Diseases [CONS] Routine Consulting Provider: Infectious Disease Renee Reason for Consult: has failed Op therapy, was admitted x 2 and treated with Iv Abx last time was 3 weeks ago. sent yhom bennett oral Abx bactrim and keflex with worsening of her symptoms Call Completed: No 05/08/18 19:53 Consult to Case Management [CONS] Routine Comment: Consult to Physical Therapy [CONS] Routine Comment: Evaluate, develop and implement POC Reason for Consult: dispostion Does patient have active BEDREST order?: No Is patient medically & hemodynamically stable?: Yes Patient assessed for mobility or mobilized this visit?: Yes OT [Consult to Occupational Therapy] [CONS] Routine Comment: Evaluate, develop and implement POC Reason for Consult: disposition Does patient have active BEDREST order?: No Is patient medically & hemodynamically stable?: Yes Patient assessed for mobility or mobilized this visit?: Yes - Constitutional Vitals: Temp Pulse Resp BP Pulse Ox 98.3 F 79 16 126/79 99 05/09/18 18:45 05/09/18 18:45 05/09/18 18:45 05/09/18 18:45 05/09/18 18:45 Exam: Patient left AMA. - Patient Status Disposition: Left Against Medical Advice Condition: Good - Discharge Instructions Follow Up With: NONE,PCP [Primary Care Provider] -
== END 2018-05-09 20:55 | disposition left against medical advice (07) | DRG 197 ==
LOC: EMEROOARM 12:22 → 3ANU 12:22 → SUATTDRO 16:57
PROVIDERS: ADMIT Student in an Organized Health Care Education/Training Program; ATTEND Internal Medicine